=== PATIENT | female | born 1980 | race African-American/Black ===

== ENCOUNTER 2019-05-24 05:06 | Emergency (ER) | payer SELFPAY ==
[~2019-05-24] VITALS: Ht 165.1 cm; Wt 90.0 kg
[~2019-05-24 05:06] MED LIST: ALBU05 IH
[2019-05-24] MEDS ORDERED: TETANUS, DIPHTHERIA, PERTUSSIS VAC/PF 0.5ML (>7YR OLD) IM ONE (06:45)
[2019-05-24] MEDS ORDERED: IPRATROPIUM/ALBUTEROL 0.5-3(2.5)MG/3ML NEB HHN ONE (07:30)
[2019-05-24] MEDS ORDERED: ACETAMINOPHEN 500MG TABLET PO ONE (08:30)
[2019-05-24 09:42] VITALS: BP 122/78
== END 2019-05-24 09:30 | disposition home or self-care (01) ==
LOC: ER 05:06
DX: S01.01XA Laceration without foreign body of scalp, initial encounter (principal); S06.9X1A Unspecified intracranial injury with loss of consciousness of 30 minutes or less, initial encounter; J45.909 Unspecified asthma, uncomplicated; E05.90 Thyrotoxicosis, unspecified without thyrotoxic crisis or storm; Y00.XXXA Assault by blunt object, initial encounter; Y93.89 Activity, other specified; Y92.018 Other place in single-family (private) house as the place of occurrence of the external cause
CPT/HCPCS: 70450; 90471; 90715; 94640; 99284; J7620; Z7610